=== PATIENT | female | born 1960 | race Hispanic/Latino ===

== ENCOUNTER → 2018-05-25 | Outpatient (CLI) | payer OTHER ==
[~2018-05-25] MED LIST: ACYC400T PO; ASPI-555 PO; ATOR10 PO; KETOROLAC OS; LEVO150T11 PO; PRED20TA3 PO
== END | disposition home or self-care (01) ==
LOC: RAH 08:47 → EDBD 08:47
PROVIDERS: ATTEND Internal Medicine Critical Care Medicine
DX: R05 Cough (principal)
CPT/HCPCS: 71046

== ENCOUNTER → 2018-11-10 | Outpatient (CLI) | payer OTHER, MEDICARE | END | disposition home or self-care (01) | LOC: RAH 13:11 | PROVIDERS: ATTEND Internal Medicine Critical Care Medicine | DX: E04.1 Nontoxic single thyroid nodule (principal); I73.9 Peripheral vascular disease, unspecified | CPT/HCPCS: 76536; 93922 ==

== ENCOUNTER 2022-01-27 10:14 | Emergency (ER) | payer OTHER, MEDICARE ==
[~2022-01-27] VITALS: Ht 162.6 cm; Wt 74.8 kg
[~2022-01-27 10:14] MED LIST changes: -ACYC400T PO; +ACYC400T20 PO; -ASPI-555 PO; +ASPI-556 PO
[2022-01-27 10:46] LABS: BASOPHILS % (AUTO) 0.4 % (0.0-5.0); EOSINOPHILS % (AUTO) 0.4 % (0.0-8.0); LYMPHOCYTES % (AUTO) 17.1 % (21.0-51.0); MEAN CORPUSCULAR HEMOGLOBIN 25.6 pg (27.0-33.0); MEAN CORPUSCULAR HGB CONC 32.6 g/dL (32.0-36.0); MEAN CORPUSCULAR VOLUME 78.5 fL (79-99); MONOCYTES % (AUTO) 6.9 % (3.0-13.0); NEUTROPHILS % (AUTO) 74.8 % (40.0-77.0); PLATELET COUNT (AUTO) 166 K/uL (130-400); RED BLOOD CELL COUNT(AUTO) 4.97 MIL/uL (4.00-5.50); RED CELL DISTRIBUTION WIDTH 15.3 % (11.0-15.5); WHITE BLOOD COUNT (AUTO) 4.8 K/uL (4.8-10.8)
[2022-01-27 10:55] LABS: CREATININE 0.8 mg/dL (0.5-1.5); POTASSIUM 3.8 mmol/L (3.5-5.1)
[2022-01-27 11:00] LABS: ALBUMIN 3.7 g/dL (3.5-5.0); TOTAL PROTEIN, SERUM 7.7 g/dL (6.0-8.3)
[2022-01-27] MEDS ORDERED: KETOROLAC 30MG VIAL (30MG/ML) IVP SCH (12:17)
[2022-01-27 13:28] VITALS: BP 120/73
[2022-01-27] MEDS ORDERED: NAPR375T6 PO (13:50)
== END 2022-01-27 13:55 | disposition home or self-care (01) ==
LOC: EDH 10:14
DX: M94.0 Chondrocostal junction syndrome [Tietze] (principal); R07.89 Other chest pain; E03.9 Hypothyroidism, unspecified; E78.00 Pure hypercholesterolemia, unspecified; I10 Essential (primary) hypertension; K21.9 Gastro-esophageal reflux disease without esophagitis; Z79.1 Long term (current) use of non-steroidal anti-inflammatories (NSAID); Z79.52 Long term (current) use of systemic steroids; Z79.82 Long term (current) use of aspirin; Z79.899 Other long term (current) drug therapy; Z90.49 Acquired absence of other specified parts of digestive tract
CPT/HCPCS: 99285; 96374; 71045; 84484 ×2; 80053; 83690; 85025; 36415; 93005; J1885